=== PATIENT | male | born 1995 | race Caucasian/White ===

== ENCOUNTER 2018-07-20 23:22 | Emergency (ER) | payer SELFPAY ==
[~2018-07-20] VITALS: Ht 180.3 cm; Wt 76.4 kg
[~2018-07-20 23:22] MED LIST: ANTIBIOTIC PO; IBUP-1222 PO; TRAM50TA2 PO
[2018-07-20 23:23] VITALS: BP 115/73
--- NOTE | 2018-07-20 23:54 | NUR ---
Pt ambulated to room with EDT.
--- NOTE | 2018-07-21 00:13 | NUR ---
Pt given bacitracin for wounds on face.
== END 2018-07-21 01:34 | disposition home or self-care (01) ==
LOC: ED 23:55
DX: L01.01 Non-bullous impetigo (principal); L03.221 Cellulitis of neck; Z59.0 Homelessness
CPT/HCPCS: 99283

== ENCOUNTER 2019-10-16 09:26 | Emergency (ER) | payer MEDICAID ==
[~2019-10-16] VITALS: Ht 172.7 cm; Wt 74.7 kg
[2019-10-16 09:33] VITALS: BP 119/70
== END 2019-10-16 10:13 | disposition home or self-care (01) ==
LOC: ED 09:57
DX: H60.11 Cellulitis of right external ear (principal); H65.01 Acute serous otitis media, right ear; R09.89 Other specified symptoms and signs involving the circulatory and respiratory systems; F17.200 Nicotine dependence, unspecified, uncomplicated
CPT/HCPCS: 99283